=== PATIENT | female | born 1985 | race Caucasian/White ===

== ENCOUNTER 2019-03-25 23:12 | Inpatient (IN) | payer OTHER ==
[2019-03-26] MEDS ORDERED: Promethazine INJ(RESTRICTED)* 25 MG/ML 1 ML VIAL IM ONE (01:53)
[2019-03-26] MEDS ORDERED: Lactated Ringers 1000 ML Bag* 1,000 ML IV ONE (01:53)
[2019-03-26] MEDS ORDERED: Nalbuphine* 10 MG/ML 1 ML VIAL IM ONE (01:53)
[2019-03-26] MEDS ORDERED: Buffered Lidocaine 1% SYRIN* 1 ML/SYRINGE INTRADERM ONE (01:53)
--- NOTE | 2019-03-26 01:53 | PN ---
L&D Outpatient: Visit - Reproductive Information Estimated Due Date: 03/28/19 Gestational Age: 39 Weeks and 5 Days : 1 Para: 0 - Reason for Visit Visit Reason: Labor evaluation - Antepartal Records Antepartal Record: Reviewed, Complicated by: - Rh negative; rubella NI Review of Systems Constitutional: Uncomfortable CV Complaint: No Respiratory: Shortness of Breath: No Gastrointestinal: No Nausea/Vomiting, Normal Bowel Movement Genitourinary: No Dysuria, No Bleeding, No Leaking Fluid Musculoskeletal: Contractions Neurological: No Headache, No Visual Changes Movement: Normal L&D Outpatient: Exam Vitals - Most Recent: Temp 98.9, HR 80, RR 20, BP 144/78 (pain), O2 99% - Cervical Exam Cervical Exam: Initial /0 by CNM; 3. by RN - Abdominal Exam Abdomen Exam: Non-Tender - Membranes Membrane Status: Intact - Ultrasound/Biophysical Profile Ultrasound Status: Not Done EFM Findings - External Monitor Findings Baseline Heart Rate: 135 External Monitor Findings: Accelerations Present, No Pattern of Variable or Late Decelerations, Variability Moderate, Baseline Stable External Monitor Findings Comment: No evidence of metabolic acidemia Contractions: Irregular, Moderate, 45-90 Seconds L&D Outpatient: Asses/Plan Assessment: , IUP@39+5, here in labor GBS negative, A negative No evidence of metabolic acidemia Contractions palpate moderate to hard; good resting tone Discussed pain medication options; pt opting for nubain and phenergan. May choose epidural in the future. Plan: Admit as Inpatient
[2019-03-26] MEDS ORDERED: Lactated Ringers 1000 ML Bag* 1,000 ML IV SCH ×2 (02:00→22:00)
--- NOTE | 2019-03-26 02:19 | HP ---
General Information - Reason for Visit , IUP@39+5, in labor - General Information Maternal Age: 33 Grav: 1 Para: 0 SAB: 0 IEA: 0 Estimated Due Date: 03/28/19 Determined By: LMP Gestational Age in Weeks/Days: 39+5 Maternal Blood Type and Rh: A Negative - Results this Serology/RPR Result: Non-Reactive Rubella Result: Non-Immune HBsAg Result: Negative HIV Result: Negative GBS Culture Result: Negative Past Medical History Delivery History Comment: G1 Pertinent Past Medical History: Non-Contributory Past Medical History Comment: Eczema Allergies - environmental Past Surgical History Comment: [place] tooth extraction Family History Comment: Father: clotting, DVT, PE (not genetic) Brother: asthma PGM: d/t AR PGF: Decreased d/t stroke MGM: diabetes MGF: Cancer Maternal aunt: breast cancer - Antepartal Records Antepartal Records: Reviewed, Complicated by: - Rh negative; rubella NI Review of Systems Constitutional: Uncomfortable CV Complaint: No Respiratory: Shortness of Breath: No Gastrointestinal: No Nausea/Vomiting, Normal Bowel Movement Genitourinary: No Dysuria, No Bleeding, No Leaking Fluid Musculoskeletal: Contractions Neurological: No Headache, No Visual Changes Movement: Normal Exam Allergies/Adverse Reactions: Allergies No Known Allergies Allergy (Verified 03/25/19 23:53) Initial BP 144/78, rpt 126/78; temp 98.9; HR 80; Sat 99%; RR 20 - Measurements Height: 5 ft 4 in Weight: 205 lb Weight in lbs: [phone] Body Mass Index (BMI): 35.2 Pre- Weight: 160 lb 0.008 oz Weight Gained This : 44.999 lbs and 0.008 ozs - Exam Breast: Breast Exam Deferred CVA: No CVA Tenderness Extremities: Edema - pedal edema Heart: Normal Rhythm/Heart Sounds HEENT: No Significant Findings Lungs: Clear Bilaterally Rectal: Rectal Exam Deferred - Abdominal Exam Abdomen Exam: Non-Tender Targeted Exam Findings Estimated Weight: 8lbs Cervical Exam: 3cm Effacement: 90% Station: 0 Presenting Part: Vertex Membrane Status: Intact EFM Findings - External Monitor Findings Baseline Heart Rate: 135 External Monitor Findings: Accelerations Present, No Pattern of Variable or Late Decelerations, Variability Moderate, Baseline Stable External Monitor Findings Comment: No evidence of metabolic acidemia Contractions: Regular, Moderate, Strong, 45-90 Seconds Assessment/Plan - Assessment , IUP@39+5, here in labor GBS negative, A negative No evidence of metabolic acidemia Contractions palpate moderate to hard; good resting tone Discussed pain medication options; pt opting for nubain and phenergan. May choose epidural in the future. - Obstetrical Risk Factors Obstetrical Risk Factors: Obesity - Plan Plan: Admit - Anticipate Vaginal Delivery Plan Comment: Admit to L&D Nubain/phenergan now Epidural prn Anticipate progression to - Date/Time of Admission Date of Admission: 03/26/19 Time of Admission: 02:00
[2019-03-26] MEDS ORDERED: Nalbuphine* 10 MG/ML 1 ML VIAL IM PRN (03:18)
[2019-03-26] MEDS ORDERED: Promethazine INJ(RESTRICTED)* 25 MG/ML 1 ML VIAL IM PRN (03:19)
[2019-03-26 03:53] LABS: Urine Benzodiazepine Screen None Detected (None Detect); Urine Opiates Screen None Detected (None Detect)
--- NOTE | 2019-03-26 07:13 | PN ---
Progress Note - Progress Note Date of Service: 03/26/19 Note: S: Pt finding considerable relief from contractions while in the tub. Following nubain/phenergan, able to sleep for 2 hours. Now delvin every 5 minutes. Requesting VE. Planning to go back in the tub after. Denies need for pain medication at this time. O: BP 127/79, Temp 97.9, HR 69 FHR auscultation: 140 Contractions ~5 minutes VE: 4.5/90/0, +bloody show, IBOW A: , IUP@39+5, in active labor GBS negative Contractions palpate moderate to hard, good resting tone Making appropriate cervical change Coping well with contractions P: Discussed pain management plan. Pt may opt for epidural, but also considering nitrous. Plan for hydrotherapy now. VE prn Anticipate progression to
--- NOTE | 2019-03-26 10:00 | PN ---
Progress Note - Progress Note Date of Service: 03/26/19 Note: has been in tub, now out, requesting nitrous oxide ? leaking fluid Cervix: 7cm/100%/ vtx 0, bulging bag Will try nitrous Await full dilation
--- NOTE | 2019-03-26 11:43 | PN ---
Progress Note - Progress Note Date of Service: 03/26/19 Note: using nitrous, no longer effective, very uncomfortable Cervix still 7cm Will proceed with epidural
[2019-03-26] MEDS ORDERED: OBEPIDURAL* 250 ML EPIDURAL ONE (11:48)
[2019-03-26 12:05] LABS: Hematocrit 38 % (35-47); Mean Corpuscular HGB Conc 35 g/dL (31-36); Mean Corpuscular Hemoglobin 29 pg (27-31); Mean Corpuscular Volume 84 fL (80-97); Mean Platelet Volume 9.6 fL (7.4-10.4); Platelet Count 256 10^3/uL (150-450); Red Blood Count 4.45 10^6 /uL (3.70-4.87); Red Cell Distribution Width 15 % (10-15); White Blood Count 13.8 10^3/uL (3.5-10.8)
[2019-03-26 12:57] LABS: ABS Basophils 0.1 10^3/ul (0-0.2); ABS Eosinophils 0.1 10^3/ul (0-0.6); ABS Lymphocytes 2.2 10^3/ul (1.0-4.8); ABS Monocytes 1.6 10^3/ul (0-0.8); ABS Neutrophils 9.8 10^3/ul (1.5-7.7); Eosinophil % 0.7 %; Lymphocyte % 16.1 %; Nucleated Red Blood Cells % 0.1
[2019-03-26] MEDS ORDERED: Oxytocin in LR* 20 UNITS/1,000 ML BAG IVPB ONE (14:21)
--- NOTE | 2019-03-26 14:24 | PN ---
Progress Note - Progress Note Date of Service: 03/26/19 Note: comfortable after epidural Cervix: 8cm/90, vtx 0 AROM, clear Contractions have spaced out Will augment with pitocin
[2019-03-26] MEDS ORDERED: Oxytocin in LR* 20 UNITS/1,000 ML BAG IVPB SCH ×2 (15:00→21:31)
--- NOTE | 2019-03-26 17:54 | PN ---
Progress Note - Progress Note Date of Service: 03/26/19 Note: still comfortable, intermittent pressure Cervix: 9.5 cm, cervix on R side. ? occiput transverse. vtx +1 Will continue to await full dilation
[2019-03-26] MEDS ORDERED: Acetaminophen TAB* 325 MG ONE (20:49)
[2019-03-26] MEDS ORDERED: Dibucaine 1% 28.35 GM TUBE ONE (20:49)
[2019-03-26] MEDS ORDERED: Witch Hazel PAD* JAR ONE (20:49)
[2019-03-26] MEDS ORDERED: Ibuprofen TAB* 600 MG ONE (20:49)
[2019-03-26] MEDS ORDERED: Measles, Mumps,Rubella VACC* 0.5 ML/VIAL SUBCUT ONE (21:28)
[2019-03-26] MEDS ORDERED: RHO D Immune Globulin (HUMAN)* 300 MCG = 1,500 I.U. INJ IM ONE (21:28)
[2019-03-26] MEDS ORDERED: Dibucaine 1% 28.35 GM TUBE PR PRN (21:28)
[2019-03-26] MEDS ORDERED: Witch Hazel PAD* JAR TOPICAL PRN (21:28)
[2019-03-26] MEDS ORDERED: Methylergonovine INJ* 0.2 MG/ML 1ML AMP IM ONE (21:31)
--- NOTE | 2019-03-26 21:38 | PN ---
Progress Note - Progress Note Date of Service: 03/26/19 Note: late entry: Pt began pushing at 1858, with good progress. However at approx 1940 , tachycardia began at 180 and quickly increased to 200bpm. T 100.9 Dr. Simmons consulted and decision made to deliver with vacuum. See his delivery note. Repair of 2nd deg perineal lac by me with 3-0 rapide and 4-0 vicryl by me under local infiltration of 1% lidocaine. Mother and baby in good condition. EBL 450 cc
--- NOTE | 2019-03-26 22:35 | PROCNOTE ---
[facility] OB: Delivery Note - Delivery A Date of : 03/26/19 Time of : 20:05 Meyers Chuck Sex: Female Weight at : 8 lb 6 oz Score 1 Minute: 8 Score 5 Minutes: 9 Gestational Age in Weeks and Days at Delivery: 39 Weeks and 5 Days Delivery Method: Low Vacuum Extraction, Vaginal Labor: Spontaneous Did Patient attempt ?: N/A, No Previous Amniotic Fluid: Clear Estimated Blood Loss: 450 Anesthesia/Analgesia: CEI for Labor Delivered By: Stuart Simmons - Nursery Level of Nursery: Regular/Bedside - Perineum Perineal Injury: 2nd Degree Perineal Repair: Darlene Ayala CNM - Events Delivery Events of Note: Pitocin During Labor, Difficult Delivery, Post- Bleeding - Meds Given Delivery Events of Note Comment: Pt presented in early labor and progressed gradually in labor. She received an epidural which was effective. When she had been pushing for about 30 min, FHT became significantly tachycardic. Pt had pushed to +2 but at that point the FHR was 190s and the pt's progress was fairly slow. Due to the low station, I was called to evaluate. I agreed expedited delivery was necessary due to the persistent tachycardia. Pelvis was felt to be adequate and the head was considered low enough for vacuum assistance. We discussed the possibility of hematoma or more serious scalp bleeding and an increased risk of severe perineal laceration. After discussion, pt desired to proceed. Kiwi vacuum applied to the scalp without difficulty. With the next three sets of contractions, there was good descent each time. The head delivered in a controlled fashion. There was a nuchal cord present that was left in place. The shoulders were initially very tight, but also somewhat transverse. Will some gentle traction, the more anterior one delivered, and the posterior delivered as well. The body then delivered and the infant was placed on the mother's abdomen. 's tone was initially poor, but baby cried with stimulation. Dr. Key was present and evaluated baby at delivery. IV pitocin started. Placenta delivered spontaneously and intact. Uterus initially soft and there was some brief brisk bleeding which responded to bimanual massage. IM Methergine was also given. Bleeding improved. 1% lidocaine injected. A single 3-0 Vicryl figure of eight stitch was placed to reinforce the sphincter capsule. Darlene Ayala CNM then did the remainder of the repair as I was needed for another patient. - Risk for Falls Delivered OB Patient- Risk for Falls: Heavy Bleeding, Excessive Pain Fall Risk: Patient is at High Risk for Falls
[2019-03-27] MEDS ORDERED: Lidocaine 1% INJ* 10 MG/ML 30 ML SDV ONE (00:21)
[2019-03-27] MEDS: Acetaminophen TAB* 325 MG PO PRN ×6 (00:36→21:23)
[2019-03-27] MEDS: Ibuprofen TAB* 600 MG PO PRN ×3 (04:12→16:38)
[2019-03-27 08:18] LABS: ABS Eosinophils 0.1 10^3/ul (0-0.6); ABS Monocytes 1.5 10^3/ul (0-0.8); ABS Neutrophils 9.8 10^3/ul (1.5-7.7); Eosinophil % 0.4 %; Hematocrit 26 % (35-47); Lymphocyte % 15.1 %; Mean Corpuscular HGB Conc 35 g/dL (31-36); Mean Corpuscular Hemoglobin 29 pg (27-31); Mean Corpuscular Volume 84 fL (80-97); Mean Platelet Volume 9.4 fL (7.4-10.4); Platelet Count 207 10^3/uL (150-450); Red Blood Count 3.07 10^6 /uL (3.70-4.87); Red Cell Distribution Width 15 % (10-15); White Blood Count 13.4 10^3/uL (3.5-10.8)
[2019-03-27] MEDS: Ferrous Gluconate TAB* 324 MG TAB PO SCH ×2 (09:15→21:23)
[2019-03-27] MEDS: Docusate CAP* 100 MG PO SCH ×3 (09:15→21:23)
[2019-03-28] MEDS: Ibuprofen TAB* 600 MG PO PRN ×2 (00:39→06:42)
[2019-03-28] MEDS: Acetaminophen TAB* 325 MG PO PRN ×3 (01:25→09:33)
[2019-03-28 07:30] VITALS: BP 117/62
--- NOTE | 2019-03-28 08:45 | PTEDU ---
Patient Name: RUPINDER AYALA RUPINDER AYALA selected video: Never Ever Shake a Baby to view on 03/28/2019 at 8:44:15 AM from [facility] [id number]
[2019-03-28] MEDS: Ferrous Gluconate TAB* 324 MG TAB PO SCH (09:32)
[2019-03-28] MEDS: Docusate CAP* 100 MG PO SCH (09:32)
== END 2019-03-28 11:24 | disposition home or self-care (01) | DRG 807 ==
LOC: MCHOBOUT 23:12 → MCHOB 03-26 01:50
PROVIDERS: ADMIT Advanced Practice Midwife; ATTEND Obstetrics & Gynecology
PROC: 10D07Z6 Extraction of Products of Conception, Vacuum, Via Natural or Artificial Opening (ICD-10-PCS; principal; 2019-03-26)
PROC: 0KQM0ZZ Repair Perineum Muscle, Open Approach (ICD-10-PCS; 2019-03-26)
PROC: 10907ZC Drainage of Amniotic Fluid, Therapeutic from Products of Conception, Via Natural or Artificial Opening (ICD-10-PCS; 2019-03-26)
PROC: 4A1HXCZ Monitoring of Products of Conception, Cardiac Rate, External Approach (ICD-10-PCS; 2019-03-26)
DX: O99.214 Obesity complicating childbirth (principal); O76 Abnormality in fetal heart rate and rhythm complicating labor and delivery; O70.1 Second degree perineal laceration during delivery; O90.81 Anemia of the puerperium; O72.1 Other immediate postpartum hemorrhage; O69.81X0 Labor and delivery complicated by cord around neck, without compression, not applicable or unspecified; Z37.0 Single live birth; Z3A.39 39 weeks gestation of pregnancy; Z67.11 Type A blood, Rh negative
CPT/HCPCS: 36415; 80307; 85025; 85461; 86850; 86900; 86901; 90707; A9270-GY; J2300; J2550; J2790

== ENCOUNTER 2021-01-19 06:02 | Inpatient (IN) ==
[~2021-01-19 06:02] MED LIST: Buffered Lidocaine 1% SYRIN 1 ml INTRADERM ONE; Sodium Citrate/Citric Acid LIQ 15 ML UDC PO ONE
[2021-01-19] MEDS ORDERED: ceFOXitin 2 GM PREMIX 50 ML IVPB ONE (07:00)
[2021-01-19] MEDS: Lactated Ringers 1000 ml BAG 1,000 ML IV SCH ×2 (07:14→08:02)
[2021-01-19 07:25] LABS: Urine Benzodiazepine Screen None Detected (None Detect); Urine Opiates Screen None Detected (None Detect)
[2021-01-19] MEDS ORDERED: Morphine PF AMP (0.5MG/ML) 5 MG/10 ML AMP ONE (07:41)
[2021-01-19] MEDS ORDERED: Oxytocin 10 UNITS/ML 1 ML VIAL ONE (07:41)
[2021-01-19] MEDS ORDERED: Phenylephrine 40 mcg/mL 10mL (400mcg) SYRINGE ONE (07:41)
[2021-01-19] MEDS ORDERED: Naloxone 0.4 mg VIAL 0.4 mg/ml 1 ml VIAL IV PRN ×2 (07:53→07:54)
[2021-01-19] MEDS ORDERED: fentaNYL 100 mcg/2 ml 50 MCG/ML VIAL IV PRN (07:53)
[2021-01-19] MEDS ORDERED: Ondansetron 4 mg VIAL 2 MG/ML 2 ml VIAL IV PRN ×2 (07:53→07:54)
[2021-01-19] MEDS ORDERED: oxyCODONE/Acetamin 5/325 mg TAB PO PRN ×2 (07:54)
[2021-01-19] MEDS ORDERED: diPHENhydraMINE IV 50 MG/ML 1 ml VIAL (BENADRYL) IV PRN (07:54)
[2021-01-19] MEDS ORDERED: Ondansetron 4 mg VIAL 2 MG/ML 2 ml VIAL ONE (08:37)
[2021-01-19] MEDS ORDERED: DiMENhydriNATE IV 50 mg/ml 1 ml VIAL ONE (08:56)
[2021-01-19] MEDS ORDERED: Dexamethasone IV 4 MG/ML VIAL 1 ml VIAL ONE (08:57)
[2021-01-19] MEDS ORDERED: Witch Hazel PAD JAR TOPICAL PRN (09:32)
[2021-01-19] MEDS ORDERED: RHO D Immune Globulin (HUMAN) 300 MCG = 1,500 I.U. INJ IM PRN (09:32)
[2021-01-19] MEDS ORDERED: Lactated Ringers 1000 ml BAG 1,000 ML IV SCH (10:00)
[2021-01-19 10:49] LABS: Urine Appearance Clear; Urine Bilirubin Negative (Negative); Urine Blood 1+ (Negative); Urine Color Colorless; Urine Glucose Negative (Negative); Urine Ketones Negative (Negative); Urine Nitrite Negative (Negative); Urine Protein Negative (Negative); Urine Specific Gravity 1.002 (1.002-1.030); Urine Urobilinogen Negative (Negative)
[2021-01-19 10:52] LABS: Urine Bacteria Absent (Absent); Urine Red Blood Cell Trace(0-2/hpf) (Absent); Urine Squamous Epithelial Cell Present (Absent); Urine White Blood Cell Absent (Absent)
[2021-01-19] MEDS: LoraTADine 10 mg TAB (NF) PO SCH (18:35)
[2021-01-20 07:42] LABS: ABS Basophils 0.1 10^3/ul (0-0.2); ABS Eosinophils 0.1 10^3/ul (0-0.6); ABS Lymphocytes 2.1 10^3/ul (1.0-4.8); ABS Monocytes 1.4 10^3/ul (0-0.8); ABS Neutrophils 9.9 10^3/ul (1.5-7.7); Eosinophil % 0.4 %; Hematocrit 36 % (35-47); Hemoglobin 12.1 g/dL (12.0-16.0); Lymphocyte % 15.7 %; Mean Corpuscular HGB Conc 34 g/dL (31-36); Mean Corpuscular Hemoglobin 29 pg (27-31); Mean Corpuscular Volume 86 fL (80-97); Mean Platelet Volume 9.7 fL (7.4-10.4); Platelet Count 244 10^3/uL (150-450); Red Blood Count 4.15 10^6 /uL (3.70-4.87); Red Cell Distribution Width 14 % (10-15); White Blood Count 13.6 10^3/uL (3.5-10.8)
[2021-01-20] MEDS: LoraTADine 10 mg TAB (NF) PO SCH (08:02)
[2021-01-20] MEDS ORDERED: Measles, Mumps,Rubella VACC 0.5 ML/VIAL SUBCUT ONE (09:00)
[2021-01-21] MEDS: LoraTADine 10 mg TAB (NF) PO SCH (08:12)
[2021-01-21 10:31] VITALS: BP 116/62
== END 2021-01-21 11:25 | disposition home or self-care (01) | DRG 540 ==
LOC: MCHOB 06:02
PROVIDERS: ADMIT Obstetrics & Gynecology; ATTEND Obstetrics & Gynecology

== ENCOUNTER 2024-01-08 14:34 | Inpatient (IN) ==
[2024-01-08] MEDS ORDERED: Buffered Lidocaine 1% SYRIN 1 ml INTRADERM ONE ×2 (15:18→17:58)
[2024-01-08 16:30] LABS: ABS Eosinophils 0.1 10^3/uL (0.0-0.5); ABS Lymphocytes 1.4 10^3/uL (1.0-4.8); ABS Monocytes 1.2 10^3/uL (0.0-0.9); ABS Neutrophils 7.1 10^3/uL (1.5-7.6); Eosinophil % 1.1 %; Hematocrit 35.1 % (35-45); Lymphocyte % 14.4 %; Mean Corpuscular Hemoglobin 28.3 pg (27-33); Mean Corpuscular Hgb Conc 34.2 g/dL (31-36); Mean Corpuscular Volume 82.7 fL (80-97); Mean Platelet Volume 9.4 fL (7.5-11.2); Platelet Count 255 10^3/uL (150-450); Red Blood Count 4.24 10^6/uL (3.63-4.92); Red Cell Distribution Width 15.2 % (12-17); White Blood Count 9.8 10^3/uL (3.8-11.8)
[2024-01-08 16:56] LABS: Urine Appearance Clear; Urine Bilirubin Negative (Negative); Urine Blood Negative (Negative); Urine Color Light-Yellow; Urine Glucose Trace (Negative); Urine Ketones Trace (Negative); Urine Nitrite Negative (Negative); Urine Protein 1+ (>=30 mg/dL) (Negative); Urine Specific Gravity 1.023 (1.002-1.030); Urine Urobilinogen Negative (Negative)
[2024-01-08 17:00] LABS: Urine Bacteria Absent /HPF (Absent); Urine Red Blood Cell 1+(3-5/hpf) /HPF (0-Trace); Urine Squamous Epithelial Cell Present /HPF (Absent); Urine White Blood Cell 1+(6-10/hpf) /HPF (0-Trace)
[2024-01-08 17:01] LABS: Albumin 3.4 g/dL (3.2-5.2); Calcium 8.8 mg/dL (8.6-10.3); Creatinine, Serum 0.75 mg/dL (0.51-0.95); Globulin 3.4 g/dL (2-4); Potassium 3.7 mmol/L (3.5-5.0); Total Bilirubin 0.3 mg/dL (0.2-1.0); Total Protein 6.8 g/dL (6.4-8.9); Uric Acid 4.2 mg/dL (2.3-6.6); eGFR CKD-EPI 105.7 (>60)
[2024-01-08 17:21] LABS: Urine Creatinine Concentration 122.14 mg/dL (20.00-320.00); Urine TP Creat Ratio 0.37 mg/mg
[2024-01-08 17:23] LABS: Urine Benzodiazepine Screen None Detected (None Detect); Urine Cannabinoids Screen None Detected (None Detect); Urine Opiates Screen None Detected (None Detect)
[2024-01-08] MEDS: Lactated Ringers 1000 ml BAG 1,000 ML IV ONE (18:20)
[2024-01-08] MEDS: ceFOXitin 2 GM IVPREMIX 2 GM/50 ML BAG IVPB ONE (18:30)
[2024-01-08] MEDS ORDERED: Bupivacaine-MPF SPINAL 7.5 MG/ML - 2ML AMP ONE (20:17)
[2024-01-08] MEDS ORDERED: fentaNYL 100 mcg/2 ml 50 MCG/ML VIAL ONE (20:18)
[2024-01-08] MEDS ORDERED: HYDROmorphone 1 MG/1 ML SYRINGE ONE (20:18)
[2024-01-08] MEDS ORDERED: Morphine PF AMP (0.5MG/ML) 5 MG/10 ML AMP ONE (20:20)
[2024-01-08] MEDS: Sodium Citrate/Citric Acid LIQ 15 ML UDC PO ONE (20:50)
[2024-01-08 22:26] LABS: Urine Appearance Clear; Urine Bilirubin Negative (Negative); Urine Blood Negative (Negative); Urine Color Light-Yellow; Urine Glucose Negative (Negative); Urine Ketones Negative (Negative); Urine Nitrite Negative (Negative); Urine Protein Negative (Negative); Urine Specific Gravity 1.015 (1.002-1.030); Urine Urobilinogen Negative (Negative); Urine pH 6.5 (5.0-8.0)
[2024-01-08] MEDS ORDERED: Glycerin ADULT 2.4 gm SUPP PR PRN (22:43)
[2024-01-08] MEDS ORDERED: Witch Hazel PAD JAR TOPICAL PRN (22:43)
[2024-01-08] MEDS ORDERED: Dibucaine 1% OINT 28.35 GM TUBE PR PRN (22:43)
[2024-01-08] MEDS ORDERED: Lactated Ringers 1000 ml BAG 1,000 ML IV SCH (23:00)
[2024-01-08 23:03] LABS: Urine Benzodiazepine Screen None Detected (None Detect); Urine Cannabinoids Screen None Detected (None Detect); Urine Opiates Screen None Detected (None Detect)
[2024-01-08] MEDS: Oxytocin in LR 20,000 MILLI.UNIT/1,000 ML BAG IV SCH (23:11)
[2024-01-08] MEDS ORDERED: Naloxone 0.4 mg VIAL 0.4 mg/ml 1 ml VIAL IV PUSH PRN (23:15)
[2024-01-08] MEDS ORDERED: Metoclopramide 5 MG/ML VIAL (10 mg) IV PRN ×2 (23:15→23:24)
[2024-01-08] MEDS ORDERED: Ondansetron 4 mg VIAL 2 MG/ML 2 ml VIAL IV PRN ×2 (23:15→23:24)
[2024-01-09] MEDS: Acetaminophen IV 1 GM/100ML 1,000 MG/100 ML BAG IV PRN (03:36)
[2024-01-09] MEDS: Lactated Ringers 1000 ml BAG 1,000 ML IV SCH (06:09)
[2024-01-09 06:36] LABS: ABS Basophils 0.1 10^3/uL (0.0-0.1); ABS Lymphocytes 1.1 10^3/uL (1.0-4.8); ABS Monocytes 1.2 10^3/uL (0.0-0.9); ABS Neutrophils 15.4 10^3/uL (1.5-7.6); Hematocrit 34.2 % (35-45); Hemoglobin 11.6 g/dL (11.5-14.3); Lymphocyte % 6.4 %; Mean Corpuscular Hemoglobin 27.8 pg (27-33); Mean Corpuscular Hgb Conc 33.9 g/dL (31-36); Mean Platelet Volume 9.2 fL (7.5-11.2); Platelet Count 237 10^3/uL (150-450); Red Blood Count 4.17 10^6/uL (3.63-4.92); Red Cell Distribution Width 15.4 % (12-17); White Blood Count 17.8 10^3/uL (3.8-11.8)
[2024-01-09] MEDS: Oxytocin in LR 20,000 MILLI.UNIT/1,000 ML BAG IV ONE (07:44)
[2024-01-09] MEDS: RHO D Immune Globulin (HUMAN) 300 MCG = 1,500 I.U. INJ IM PRN (11:57)
[2024-01-09] MEDS: Benzocaine/Menthol LOZ PO PRN (14:20)
[2024-01-11 08:02] VITALS: BP 142/79
== END 2024-01-11 12:20 | disposition home or self-care (01) | DRG 540 ==
LOC: MCHOBOUT 14:34 → MCHOB 16:02
PROVIDERS: ADMIT Obstetrics & Gynecology; ATTEND Obstetrics & Gynecology